=== PATIENT | female | born 1945 | race Caucasian/White ===

== ENCOUNTER 2017-02-06 19:39 | Emergency (ER) | payer OTHER ==
[~2017-02-06] VITALS: Ht 157.5 cm; Wt 98.9 kg
[~2017-02-06 19:39] MED LIST: AMARYL1 MG PO; ASPIRIN81 M1 PO; BENADRYL25 MG PO; BENZONATATE100 MG PO; CALCIUM600 MG PO; DELTASONE20 M1 PO; FLEXERIL10 MG PO; GABAPENTIN300 MG PO; GLUCOPHAGE1000 MG PO; GLUCOSAMINE1000 MG PO; HYDROCHLOROTHIA25 MG PO; KEFLEX500 MG PO; LIPITOR10 MG PO; LISINOPRIL2.5 MG PO; LISINOPRIL20 MG PO; LO-DOSE ASPIRIN81 M1 PO; LOFIBRA,TRIGLI160 MG PO; LORATADINE10 M2 PO; LOW DOSE ASPIRI81 M2 PO; METFORMIN HCL1000 M1 PO; METFORMIN HCL1000 MG PO; METOPROLOL TART50 MG PO; NEURONTIN300 MG PO; NORVASC10 MG PO; NORVASC5 MG PO; Neurontin PO; PEPCID40 MG PO; PREDNISONE10 MG PO; PRINIVIL5 MG PO; RANITIDINE HCL150 MG PO; SERTRALINE HCL25 MG PO; TOPROL XL50 MG PO; TRAMADOL HCL50 MG PO; TRICOR48 MG PO; VICODIN 5-3001 EACH PO; VOLTAREN 1% GE100 GM TP; ZESTRIL,PRINIVIL5 MG PO; ZOLOFT25 MG PO; Zoloft PO; metformin
[2017-02-06 21:18] LABS: HEMATOCRIT 46.1 % (36.0-46.0); MCH 25.2 PG (29.0-34.0); MCHC 31.2 G/DL (30.0-36.0); MCV 80.6 FL (83-99); MEAN PLAT.VOLUME 10.7 uM^3 (9.5-12.4); PLATELET COUNT 177 K/uL (156-360); RBC DIS.WIDTH-CV 15.1 % (11.8-14.6); RBC DIS.WIDTH-SD 43.6 % (39-53); RED BLOOD COUNT 5.72 M/uL (3.80-5.20); WHITE BLOOD COUNT 9.6 K/uL (4.1-10.2)
[2017-02-06 21:34] LABS: CHLORIDE 105 mEq/L (99-109); POTASSIUM 4.6 mEq/L (3.7-5.4); SODIUM 142 mEq/L (136-147)
[2017-02-06 21:37] LABS: GLUCOSE 127 mg/dL (70-99)
[2017-02-06 21:38] LABS: ANION GAP 9 MEQ/L (2-14)
[2017-02-06 21:39] LABS: TOTAL BILIRUBIN 0.5 mg/dL (0.0-1.0)
[2017-02-06 21:40] LABS: ALKALINE PHOSPHATASE 90 IU/L (3-129); GFR ESTIMATE (CALCULATED) > 59 mL/min/
[2017-02-06 21:41] LABS: UREA NITROGEN (BUN) 20 mg/dL (9-23)
[2017-02-06 21:44] LABS: LIPASE 68 U/L (1.0-51.0)
[2017-02-07 00:47] LABS: ADD MIUA? YES; BILIRUBIN NEGATIVE; BLOOD NEGATIVE; COLOR YELLOW ((YELLOW)); GLUCOSE (STRIP) NEGATIVE; KETONES NEGATIVE; LEUKOCYTES TRACE; NITRITE NEGATIVE; PROTEIN (STRIP) NEGATIVE; UROBILINOGEN 0.2 MG/DL (0.2-1.0)
[2017-02-07 00:53] LABS: BACTERIA NONE SEEN /HPF; EPITHELIAL CELLS RARE /HPF; MUCUS TRACE /LPF; RED BLOOD CELLS 0-5 /HPF (0-5); UCUL ADDED? NO; WHITE BLOOD CELLS 0-5 /HPF (0-5)
[2017-02-07 01:21] LABS: SPECIFIC GRAVITY 1.065 (1.000-1.030)
[2017-02-07] MEDS ORDERED: MIRALAX255 GM PO (01:53)
[2017-02-07 02:28] VITALS: BP 142/73
== END 2017-02-07 02:28 | disposition home or self-care (01) ==
LOC: EME 19:39
PROVIDERS: Physician Assistant
DX: K59.00 Constipation, unspecified (principal); K80.20 Calculus of gallbladder without cholecystitis without obstruction; E86.0 Dehydration; Z87.442 Personal history of urinary calculi; E11.9 Type 2 diabetes mellitus without complications; I10 Essential (primary) hypertension; Z79.84 Long term (current) use of oral hypoglycemic drugs; Z79.82 Long term (current) use of aspirin; Z91.040 Latex allergy status; Z88.1 Allergy status to other antibiotic agents; E66.9 Obesity, unspecified; Z79.899 Other long term (current) drug therapy; Z90.710 Acquired absence of both cervix and uterus
CPT/HCPCS: 74177; 76705; 80053; 81003; 83605; 83690; 85027; 93005; 99281; 99284; J1885; J3010; J7030